=== PATIENT | female | born 1980 | race Caucasian/White ===

== ENCOUNTER 2019-06-19 12:49 | Emergency (ER) | payer MEDICAID ==
[~2019-06-19] VITALS: Ht 180.3 cm; Wt 149.7 kg
[2019-06-19 12:54] VITALS: Ht 180.3 cm; Wt 149.7 kg
[2019-06-19] MEDS ORDERED: DEPAKOTE500 MG PO (13:00)
[2019-06-19] MEDS ORDERED: VIMPAT200 MG PO (13:01)
[2019-06-19] MEDS ORDERED: DILANTIN100 MG PO (13:01)
[2019-06-19] MEDS ORDERED: DEPAKOTE ER500 MG PO (13:01)
[2019-06-19] MEDS ORDERED: XANAX2 MG PO (13:02)
[2019-06-19] MEDS ORDERED: SYNTHROID75 MCG PO (13:02)
[2019-06-19 14:31] LABS: CALC OSMOLALITY 273 mosm/kg (275-300); CALCIUM 8.9 mg/dL (8.5-10.1); CARBON DIOXIDE 25.3 mmol/L (21.0-32.0); CHLORIDE - SERUM 106 mmol/L (98-107); CREATININE - SERUM 0.8 mg/dL (0.6-1.3); GLUCOSE 85 mg/dL (74-106); POTASSIUM - SERUM 4.2 mmol/L (3.5-5.1); SODIUM 138 mmol/L (136-145); UREA NITROGEN 10 mg/dL (7-18); eGFR NON AFRICAN AMERICAN 85 mL/min (90-120)
[2019-06-19 14:45] LABS: ALBUMIN 3.5 g/dL (3.4-5.0); ALKALINE PHOSPHATASE 97 U/L (46-116); ALT (SGPT) 35 U/L (10-68); AMYLASE - SERUM 13 U/L (25-115); BILIRUBIN - TOTAL 0.26 mg/dL (0.2-1.3); LIPASE 60 U/L (73-393); PROTEIN - SERUM 7.6 g/dL (6.4-8.2); TROPONIN-I < 0.017 ng/mL (0.000-0.060)
[2019-06-19 14:52] LABS: BASOPHILS 0.3 % (0-2); EOSINOPHILS 1.8 % (0-7); HEMATOCRIT 39.1 % (36.0-48.0); HEMOGLOBIN 12.9 g/dL (12-16); IMMATURE GRANULOCYTES 0.3 % (0-5); LYMPHOCYTES 38.1 % (15-50); MCH 30.7 pg (26.0-34.0); MCV 93.1 fL (80.0-100.0); MEAN PLATELET VOLUME 9.4 fL (7.4-10.4); MONOCYTES 6.9 % (2-11); NEUTROPHILS 52.6 % (40-80); PLATELET COUNT 327 10x3/uL (130-400); WBC 6.1 10x3/uL (4.8-10.8)
[2019-06-19 15:02] LABS: APPEARANCE CLEAR (CLEAR); BILIRUBIN NEGATIVE (NEGATIVE); COLOR YELLOW (YELLOW); GLUCOSE NEGATIVE (NEGATIVE); KETONE NEGATIVE (NEGATIVE); NITRITE NEGATIVE (NEGATIVE); PROTEIN NEGATIVE (NEGATIVE); UROBILINOGEN NORMAL (NORMAL)
[2019-06-19] MEDS ORDERED: ZOFRAN ODT4 MG/UDTAB PO (16:16)
[2019-06-19 16:30] VITALS: BP 104/52
== END 2019-06-19 17:00 | disposition home or self-care (01) ==
LOC: D.ER 12:49
PROVIDERS: Family Medicine
DX: R10.31 Right lower quadrant pain (principal); K76.0 Fatty (change of) liver, not elsewhere classified; K52.9 Noninfective gastroenteritis and colitis, unspecified; R11.2 Nausea with vomiting, unspecified

== ENCOUNTER 2020-02-04 12:41 | Emergency (ER) | payer OTHER, MEDICAID ==
[~2020-02-04] VITALS: Ht 180.3 cm; Wt 131.8 kg
[~2020-02-04 12:41] MED LIST: DEPAKOTE ER500 MG PO; DEPAKOTE500 MG PO; DILANTIN100 MG PO; SYNTHROID75 MCG PO; VIMPAT200 MG PO; XANAX2 MG PO; ZOFRAN ODT4 MG/UDTAB PO
[2020-02-04 13:01] VITALS: Ht 180.3 cm; Wt 131.8 kg
[2020-02-04 14:38] LABS: BASOPHILS 0.4 % (0-2); EOSINOPHILS 2.2 % (0-7); HEMATOCRIT 38.6 % (36.0-48.0); HEMOGLOBIN 12.9 g/dL (12-16); IMMATURE GRANULOCYTES 0.2 % (0-5); LYMPHOCYTES 38.5 % (15-50); MCH 30.6 pg (26.0-34.0); MCHC 33.4 g/dL (31.0-37.0); MCV 91.7 fL (80.0-100.0); MEAN PLATELET VOLUME 9.5 fL (7.4-10.4); NEUTROPHILS 52.7 % (40-80); PLATELET COUNT 333 10x3/uL (130-400); RBC 4.21 10x6/uL (4.00-5.40); RDW 13.4 % (11.5-14.5); WBC 8.1 10x3/uL (4.8-10.8)
[2020-02-04 14:44] LABS: ANION GAP 10.4 mmol/L (8-16); CALCIUM 8.7 mg/dL (8.5-10.1); POTASSIUM - SERUM 4.4 mmol/L (3.5-5.1)
[2020-02-04 14:50] LABS: ALBUMIN 3.6 g/dL (3.4-5.0); BILIRUBIN - TOTAL 0.24 mg/dL (0.2-1.3); MAGNESIUM - SERUM 2.2 mg/dL (1.8-2.4); PROTEIN - SERUM 7.4 g/dL (6.4-8.2); VALPROIC ACID (DEPAKOTE) 77.8 ug/mL (50.0-100.0)
[2020-02-04 15:47] LABS: BILIRUBIN NEGATIVE (NEGATIVE); GLUCOSE NEGATIVE (NEGATIVE); KETONE NEGATIVE (NEGATIVE); NITRITE NEGATIVE (NEGATIVE); UROBILINOGEN NORMAL (NORMAL)
[2020-02-04 15:48] LABS: HCG URINE NEGATIVE (NEGATIVE)
[2020-02-04 15:52] LABS: UDS - AMPHET NEGATIVE QUAL (NEGATIVE); UDS - BARB POSITIVE QUAL (NEGATIVE); UDS - BENZO NEGATIVE QUAL (NEGATIVE); UDS - COCAINE NEGATIVE QUAL (NEGATIVE); UDS - OPIATE POSITIVE QUAL (NEGATIVE); UDS - PCP NEGATIVE QUAL (NEGATIVE); UDS - THC NEGATIVE QUAL (NEGATIVE)
[2020-02-04 16:41] VITALS: BP 117/76
== END 2020-02-04 16:46 | disposition home or self-care (01) ==
LOC: D.ER 12:41
PROVIDERS: Emergency Medicine
DX: R56.9 Unspecified convulsions (principal); W19.XXXA Unspecified fall, initial encounter; R51 Headache

== ENCOUNTER 2020-10-10 14:43 | Emergency (ER) | payer OTHER, MEDICAID ==
[~2020-10-10] VITALS: Ht 180.3 cm; Wt 127.3 kg
[~2020-10-10 14:43] MED LIST changes: +ALBUTEROL SULF8.5 GM INH; +ATIVAN2 MG PO; +LAMICTAL25 MG PO; +OMEPRAZOLE20 M1 PO; +STERAPRED DS 1010 MG PO; +TESSALON PERLE100 MG PO
[2020-10-10 14:55] VITALS: Ht 180.3 cm; Wt 127.3 kg
[2020-10-10] MEDS ORDERED: HYDROCODON-ACE1 EA10 PO (14:58)
[2020-10-10 15:49] LABS: BASOPHILS 0.4 % (0-2); EOSINOPHILS 2.2 % (0-7); HEMATOCRIT 44.7 % (36.0-48.0); HEMOGLOBIN 14.9 g/dL (12-16); IMMATURE GRANULOCYTES 0.6 % (0-5); LYMPHOCYTE ABS# 2.79 10x3/uL (1.18-3.74); LYMPHOCYTES 26.7 % (15-50); MCH 31.2 pg (26.0-34.0); MCHC 33.3 g/dL (31.0-37.0); MCV 93.7 fL (80.0-100.0); MEAN PLATELET VOLUME 10.5 fL (7.4-10.4); NEUTROPHIL ABS# 6.61 10x3/uL (1.56-6.13); NEUTROPHILS 63.1 % (40-80); PLATELET COUNT 300 10x3/uL (130-400); RBC 4.77 10x6/uL (4.00-5.40); RDW 12.9 % (11.5-14.5); WBC 10.5 10x3/uL (4.8-10.8)
[2020-10-10 15:58] LABS: ANION GAP 15.8 mmol/L (8-16); CALCIUM 8.9 mg/dL (8.5-10.1); CARBON DIOXIDE 23.2 mmol/L (21.0-32.0)
[2020-10-10 16:18] LABS: ALBUMIN 3.7 g/dL (3.4-5.0); BILIRUBIN - TOTAL 0.2 mg/dL (0.2-1.3); PROTEIN - SERUM 7.7 g/dL (6.4-8.2)
[2020-10-10 16:40] LABS: BILIRUBIN NEGATIVE (NEGATIVE); KETONE NEGATIVE (NEGATIVE); NITRITE NEGATIVE (NEGATIVE); UROBILINOGEN NORMAL mg/dL (< 2)
[2020-10-10] MEDS ORDERED: ZOFRAN ODT4 MG/UDTAB PO (18:11)
[2020-10-10] MEDS ORDERED: BENTYL 20 MG TA20 MG PO (18:11)
[2020-10-10 18:52] VITALS: BP 129/85
== END 2020-10-10 18:52 | disposition home or self-care (01) ==
LOC: D.ER 14:43
PROVIDERS: Family Medicine
DX: R10.9 Unspecified abdominal pain (principal); R11.2 Nausea with vomiting, unspecified

== ENCOUNTER → 2020-11-11 13:18 | Outpatient (CLI) | payer OTHER, MEDICAID ==
[2020-10-10 14:55] VITALS: BMI 39.1
[~2020-11-11 13:18] MED LIST changes: +BENTYL 20 MG TA20 MG PO; +HYDROCODON-ACE1 EA10 PO
== END | disposition home or self-care (01) ==
LOC: D.MRI 13:18
PROVIDERS: ATTEND Clinical Nurse Specialist Family Health
DX: M25.562 Pain in left knee (principal)